=== PATIENT | female | born 1985 | race Caucasian/White ===

== ENCOUNTER 2016-07-26 01:35 | Emergency (ER) | payer OTHER ==
[~2016-07-26] VITALS: Ht 167.6 cm; Wt 76.2 kg
[~2016-07-26 01:35] MED LIST: Motrin PO; ~No Medications
[2016-07-26 02:36] LABS: HEMATOCRIT 38.3 % (36.0-46.0); MCH 30.7 PG (29.0-34.0); MCHC 34.2 G/DL (30.0-36.0); MCV 89.7 FL (83-99); MEAN PLAT.VOLUME 9.4 uM^3 (9.5-12.4); PLATELET COUNT 324 K/uL (156-360); RBC DIS.WIDTH-CV 11.4 % (11.8-14.6); RBC DIS.WIDTH-SD 36.5 % (39-53); RED BLOOD COUNT 4.27 M/uL (3.80-5.20)
[2016-07-26 02:43] LABS: CHLORIDE 102 mEq/L (99-109); POTASSIUM 4.1 mEq/L (3.7-5.4); SODIUM 139 mEq/L (136-147)
[2016-07-26 02:45] LABS: GLUCOSE 130 mg/dL (70-99)
[2016-07-26 02:46] LABS: ANION GAP 9 MEQ/L (2-14)
[2016-07-26 02:49] LABS: GFR ESTIMATE (CALCULATED) > 59 mL/min/
[2016-07-26 02:50] LABS: UREA NITROGEN (BUN) 11 mg/dL (9-23)
[2016-07-26 02:59] LABS: QUANTITATIVE HCG < 4.0 MIU/ML
[2016-07-26 03:42] VITALS: BP 105/76
== END 2016-07-26 03:49 | disposition home or self-care (01) ==
LOC: EME 01:35
PROVIDERS: Emergency Medicine
DX: R51 Headache (principal)
CPT/HCPCS: 80048; 84702; 85027; 99281; 99284; J0780; J1200; J1885; J7030

== ENCOUNTER 2016-12-18 17:28 | Emergency (ER) | payer OTHER ==
[~2016-12-18] VITALS: Ht 167.6 cm; Wt 84.9 kg
[2016-12-18 18:55] LABS: HEMATOCRIT 37.6 % (36.0-46.0); MCH 31.1 PG (29.0-34.0); MCHC 34.6 G/DL (30.0-36.0); MEAN PLAT.VOLUME 9.6 uM^3 (9.5-12.4); PLATELET COUNT 331 K/uL (156-360); RBC DIS.WIDTH-CV 11.9 % (11.8-14.6); RBC DIS.WIDTH-SD 38.7 % (39-53); RED BLOOD COUNT 4.18 M/uL (3.80-5.20); WHITE BLOOD COUNT 16.7 K/uL (4.1-10.2)
[2016-12-18 19:02] LABS: ALKALINE PHOSPHATASE 61 IU/L (3-129); ANION GAP 12 MEQ/L (2-14); CHLORIDE 102 mEq/L (99-109); GFR ESTIMATE (CALCULATED) > 59 mL/min/; GLUCOSE 101 mg/dL (70-99); LIPASE 25 U/L (1.0-51.0); POTASSIUM 4.3 mEq/L (3.7-5.4); QUANTITATIVE HCG < 4.0 MIU/ML; SODIUM 138 mEq/L (136-147); TOTAL BILIRUBIN 0.5 mg/dL (0.0-1.0); UREA NITROGEN (BUN) 6 mg/dL (9-23)
[2016-12-18 19:10] LABS: EOSINOPHIL (%) 0.1 % (0-5); IMMATURE GRANULOCYTE (%) 0.5 % (0.0-0.7); MONOCYTE (%) 4.1 % (3-12); NEUTROPHIL (%) 83.5 % (45-76)
[2016-12-18 19:11] LABS: IMMATURE GRANULOCYTE COUNT 0.1 K/uL; LYMPHOCYTE COUNT 1.9 K/uL (1.0-2.8); MONOCYTE COUNT 0.7 K/uL (0-0.8); NEUTROPHIL COUNT 13.9 K/uL (1.8-6.4)
[2016-12-18 19:50] LABS: ADD MIUA? YES; BILIRUBIN NEGATIVE; BLOOD NEGATIVE; COLOR YELLOW ((YELLOW)); GLUCOSE (STRIP) NEGATIVE; KETONES 5; LEUKOCYTES NEGATIVE; NITRITE NEGATIVE; PROTEIN (STRIP) 30; SPECIFIC GRAVITY 1.018 (1.000-1.030); UROBILINOGEN 0.2 MG/DL (0.2-1.0)
[2016-12-18 19:53] LABS: BACTERIA RARE /HPF; EPITHELIAL CELLS 2+ /HPF; MUCUS TRACE /LPF; RED BLOOD CELLS 0-5 /HPF (0-5); WHITE BLOOD CELLS 0-5 /HPF (0-5)
[2016-12-18] MEDS ORDERED: ZOFRAN ODT4 MG PO (20:02)
[2016-12-18] MEDS ORDERED: PERCOCET 5/31 TABLET PO (20:02)
[2016-12-18 20:12] VITALS: BP 126/84
== END 2016-12-18 20:21 | disposition home or self-care (01) ==
LOC: EME 17:28
PROVIDERS: Physician Assistant
DX: K80.20 Calculus of gallbladder without cholecystitis without obstruction (principal); K76.0 Fatty (change of) liver, not elsewhere classified; Z88.0 Allergy status to penicillin
CPT/HCPCS: 71020; 76705; 80053; 81003; 83690; 84702; 85025; 85027; 93005; 99281; 99285; J1885; J2405; J3010; J7030

== ENCOUNTER 2016-12-19 23:56 | Emergency (ER) | payer OTHER ==
[~2016-12-19] VITALS: Ht 167.6 cm; Wt 85.6 kg
[~2016-12-19 23:56] MED LIST changes: +PERCOCET 5/31 TABLET PO; +ZOFRAN ODT4 MG PO
[2016-12-20 00:32] LABS: HEMATOCRIT 37.6 % (36.0-46.0); MCHC 33.8 G/DL (30.0-36.0); MCV 91.7 FL (83-99); MEAN PLAT.VOLUME 9.4 uM^3 (9.5-12.4); PLATELET COUNT 283 K/uL (156-360); RBC DIS.WIDTH-CV 11.8 % (11.8-14.6); RBC DIS.WIDTH-SD 39.4 % (39-53); WHITE BLOOD COUNT 14.2 K/uL (4.1-10.2)
[2016-12-20 00:40] LABS: CHLORIDE 104 mEq/L (99-109); POTASSIUM 4.3 mEq/L (3.7-5.4); SODIUM 138 mEq/L (136-147)
[2016-12-20 00:42] LABS: GLUCOSE 110 mg/dL (70-99)
[2016-12-20 00:44] LABS: ANION GAP 6 MEQ/L (2-14); TOTAL BILIRUBIN 0.6 mg/dL (0.0-1.0)
[2016-12-20 00:46] LABS: ALKALINE PHOSPHATASE 58 IU/L (3-129); GFR ESTIMATE (CALCULATED) > 59 mL/min/
[2016-12-20 00:47] LABS: UREA NITROGEN (BUN) 7 mg/dL (9-23)
[2016-12-20 00:49] LABS: LIPASE 17 U/L (1.0-51.0)
[2016-12-20] MEDS ORDERED: ENDOCET 5-3251 EACH PO (03:12)
[2016-12-20] MEDS ORDERED: CIPRO500 MG PO (03:14)
[2016-12-20] MEDS ORDERED: FLAGYL500 MG PO (03:14)
[2016-12-20 03:33] VITALS: BP 116/71
== END 2016-12-20 03:36 | disposition home or self-care (01) ==
LOC: EME 23:56
PROVIDERS: Emergency Medicine
DX: K80.20 Calculus of gallbladder without cholecystitis without obstruction (principal)
CPT/HCPCS: 80053; 83690; 85027; 99281; 99284; J2270

== ENCOUNTER 2016-12-31 08:03 | Day surgery (SDC) | payer OTHER ==
[~2016-12-31] VITALS: Ht 167.6 cm; Wt 85.7 kg
[~2016-12-31 08:03] MED LIST changes: +CIPRO500 MG PO; +ENDOCET 5-3251 EACH PO; +FLAGYL500 MG PO; +ZOFRAN4 MG PO
[2016-12-31 08:27] VITALS: BP 123/78
[2016-12-31] MEDS ORDERED: OXYCODONE-ACET1 EACH PO (14:24)
[2016-12-31] MEDS ORDERED: CLEOCIN300 MG PO (14:24)
[2016-12-31 16:52] VITALS: BP 124/77
[2016-12-31 19:24] VITALS: BP 131/80
[2016-12-31 23:41] VITALS: BP 125/76
[2017-01-01 03:43] VITALS: BP 121/73
[2017-01-01 08:25] VITALS: BP 129/78
== END 2017-01-01 12:40 | disposition home or self-care (01) ==
LOC: SDC 08:03 → 2SOUTH 14:02 → ENRESERV 15:08 → CANRESERV 15:08 → ENRESERV 15:36 → 2EASTP 15:55
PROC: 0FT44ZZ Resection of Gallbladder, Percutaneous Endoscopic Approach (ICD-10-PCS; principal; 2016-12-31)
DX: K80.12 Calculus of gallbladder with acute and chronic cholecystitis without obstruction (principal); K66.0 Peritoneal adhesions (postprocedural) (postinfection); L76.12 Accidental puncture and laceration of skin and subcutaneous tissue during other procedure; Y83.9 Surgical procedure, unspecified as the cause of abnormal reaction of the patient, or of later complication, without mention of misadventure at the time of the procedure; E66.9 Obesity, unspecified; Z68.30 Body mass index [BMI] 30.0-30.9, adult; F31.9 Bipolar disorder, unspecified; Z88.0 Allergy status to penicillin
CPT/HCPCS: 88304; G0378; J1100; J1170; J1644; J2405; J2710; J3010; S0020; S0030

== ENCOUNTER 2017-02-05 15:13 | Emergency (ER) | payer OTHER ==
[~2017-02-05] VITALS: Ht 167.6 cm; Wt 81.2 kg
[~2017-02-05 15:13] MED LIST changes: +CLEOCIN300 MG PO; +OXYCODONE-ACET1 EACH PO
[2017-02-05 15:21] VITALS: BP 130/88
[2017-02-05] MEDS ORDERED: BENADRYL25 MG PO (15:45)
[2017-02-05] MEDS ORDERED: PEPCID20 MG PO (15:45)
== END 2017-02-05 16:05 | disposition home or self-care (01) ==
LOC: EME 15:13
DX: L25.9 Unspecified contact dermatitis, unspecified cause (principal); R11.2 Nausea with vomiting, unspecified; Z90.49 Acquired absence of other specified parts of digestive tract
CPT/HCPCS: 99281; 99284

== ENCOUNTER 2017-11-29 11:55 | Emergency (ER) | payer OTHER ==
[~2017-11-29] VITALS: Ht 167.6 cm; Wt 80.3 kg
[~2017-11-29 11:55] MED LIST changes: +BENADRYL25 MG PO; +PEPCID20 MG PO
[2017-11-29] MEDS ORDERED: PREDNISONE10 MG PO (13:48)
[2017-11-29] MEDS ORDERED: BENADRYL50 MG PO (13:48)
[2017-11-29 14:34] VITALS: BP 134/90
== END 2017-11-29 14:35 | disposition home or self-care (01) ==
LOC: EME 11:55
DX: T78.40XA Allergy, unspecified, initial encounter (principal); Z88.0 Allergy status to penicillin
CPT/HCPCS: 99281; 99284; J1100

== ENCOUNTER 2017-12-14 00:30 | Emergency (ER) | payer OTHER ==
[~2017-12-14] VITALS: Ht 167.6 cm; Wt 80.6 kg
[~2017-12-14 00:30] MED LIST changes: +BENADRYL50 MG PO; +PREDNISONE10 MG PO
[2017-12-14 01:38] LABS: HEMATOCRIT 38.6 % (36.0-46.0); HEMOGLOBIN 13.3 G/DL (11.9-15.5); MCH 31.5 PG (29.0-34.0); MCHC 34.5 G/DL (30.0-36.0); MCV 91.5 FL (83-99); PLATELET COUNT 247 K/uL (156-360); RBC DIS.WIDTH-SD 40.3 % (39-53); RED BLOOD COUNT 4.22 M/uL (3.80-5.20); WHITE BLOOD COUNT 16.4 K/uL (4.1-10.2)
[2017-12-14 01:46] LABS: CHLORIDE 99 mEq/L (99-109); POTASSIUM 4.2 mEq/L (3.7-5.4); SODIUM 138 mEq/L (136-147)
[2017-12-14 01:48] LABS: GLUCOSE 106 mg/dL (70-99)
[2017-12-14 01:52] LABS: CREATININE 0.7 mg/dL (0.6-1.3); GFR ESTIMATE (CALCULATED) > 59 mL/min/
[2017-12-14 01:53] LABS: UREA NITROGEN (BUN) 16 mg/dL (9-23)
[2017-12-14 02:00] LABS: QUANTITATIVE HCG < 4.0 MIU/ML
[2017-12-14 03:03] LABS: APPEARANCE SL.HAZY ((CLEAR)); BILIRUBIN NEGATIVE; BLOOD NEGATIVE; COLOR YELLOW ((YELLOW)); GLUCOSE (STRIP) NEGATIVE; KETONES NEGATIVE; LEUKOCYTES NEGATIVE; NITRITE NEGATIVE; PROTEIN (STRIP) NEGATIVE; SPECIFIC GRAVITY 1.019 (1.000-1.030); UROBILINOGEN 0.2 MG/DL (0.2-1.0)
[2017-12-14 03:08] LABS: BACTERIA NONE SEEN /HPF; EPITHELIAL CELLS 1+ /HPF; MUCUS TRACE /LPF; RED BLOOD CELLS 0-5 /HPF (0-5); UCUL ADDED? NO; WHITE BLOOD CELLS 0-5 /HPF (0-5)
[2017-12-14 03:39] LABS: CSF PROTEIN 72 mg/dL (15-45); GLUCOSE, CSF 58 mg/dL (40-80)
[2017-12-14 03:43] LABS: APPEARANCE CLEAR/COLORLESS; CSF TUBE NUMBER TUBE #3
[2017-12-14 03:44] LABS: RED CELL COUNT 0 /MM^3 (0-1); WHITE CELL COUNT 0 /MM^3 (0-5)
[2017-12-14] MEDS ORDERED: FIORINAL1 TABLET PO (03:56)
[2017-12-14 04:10] VITALS: BP 122/90
== END 2017-12-14 04:10 | disposition home or self-care (01) ==
LOC: EME 00:30
PROVIDERS: Emergency Medicine
PROC: 009U3ZX Drainage of Spinal Canal, Percutaneous Approach, Diagnostic (ICD-10-PCS; principal; 2017-12-14)
DX: R51 Headache (principal); Z88.0 Allergy status to penicillin; Z88.1 Allergy status to other antibiotic agents
CPT/HCPCS: 70450; 80048; 81003; 82945; 84157; 84702; 85027; 87205; 89051; 99281; 99285; Q0169

== ENCOUNTER 2017-12-27 23:14 | Emergency (ER) | payer OTHER ==
[~2017-12-27] VITALS: Ht 167.6 cm; Wt 78.1 kg
[~2017-12-27 23:14] MED LIST changes: +FIORINAL1 TABLET PO
[2017-12-27 23:39] LABS: BASOPHIL (%) 0.3 % (0-1); EOSINOPHIL (%) 1.7 % (0-5); EOSINOPHIL COUNT 0.2 K/uL (0-0.3); HEMATOCRIT 34.1 % (36.0-46.0); HEMOGLOBIN 11.7 G/DL (11.9-15.5); IMMATURE GRANULOCYTE (%) 0.4 % (0.0-0.7); LYMPHOCYTE (%) 22.3 % (15-42); LYMPHOCYTE COUNT 2.3 K/uL (1.0-2.8); MCH 30.8 PG (29.0-34.0); MCHC 34.3 G/DL (30.0-36.0); MCV 89.7 FL (83-99); MONOCYTE (%) 4.8 % (3-12); MONOCYTE COUNT 0.5 K/uL (0-0.8); NEUTROPHIL (%) 70.5 % (45-76); NEUTROPHIL COUNT 7.2 K/uL (1.8-6.4); PLATELET COUNT 318 K/uL (156-360); RBC DIS.WIDTH-CV 11.7 % (11.8-14.6); RBC DIS.WIDTH-SD 38.2 % (39-53); WHITE BLOOD COUNT 10.2 K/uL (4.1-10.2)
[2017-12-28] LABS: CHLORIDE 103 mEq/L (99-109); POTASSIUM 3.6 mEq/L (3.7-5.4); SODIUM 138 mEq/L (136-147)
[2017-12-28 00:02] LABS: GLUCOSE 99 mg/dL (70-99)
[2017-12-28 00:06] LABS: CREATININE 0.8 mg/dL (0.6-1.3); GFR ESTIMATE (CALCULATED) > 59 mL/min/
[2017-12-28 00:07] LABS: UREA NITROGEN (BUN) 12 mg/dL (9-23)
[2017-12-28] MEDS ORDERED: FIORICET 50-301 EAC1 PO (03:42)
[2017-12-28 03:49] VITALS: BP 111/71
== END 2017-12-28 03:50 | disposition home or self-care (01) ==
LOC: EME → EDBD 23:14 → EME 23:14
PROVIDERS: Emergency Medicine
DX: R51 Headache (principal); F31.9 Bipolar disorder, unspecified; Z88.0 Allergy status to penicillin; Z88.1 Allergy status to other antibiotic agents
CPT/HCPCS: 70496; 80048; 85025; 99281; 99284; J1100; J1200; J1885; J2765; J7030